=== PATIENT | female | born 1985 | race Caucasian/White ===

== ENCOUNTER 2023-03-28 08:40 | Emergency (ER) | payer OTHER, SELFPAY ==
[2023-03-28 08:45] VITALS: BP 171/54; PULSE 57; RESP 19; TEMP 36.6; O2SAT 98; BMI 19.1
[2023-03-28 09:34] VITALS: BP 111/55; PULSE 64; O2SAT 98
--- NOTE | 2023-03-28 09:43 | PC.NURSE ---
pt is alert and oriented, skin pwd, respirations even and unlabored, pt reports rectal pain/bleeding for months on and off but worse in the last 4 weeks, especial when having a bowel movement, pt is not on blood thinners or asa, pt states being seen at [facility] 2 days ago and was told she has a very large hemorrhoid
--- NOTE | 2023-03-28 10:03 | ED.GENADULT ---
HPI - General Adult General Chief complaint: General Medical Stated complaint: rectal bleeding Time Seen by Provider: 03/28/23 10:03 Source: patient Mode of arrival: ambulatory Limitations: no limitations History of Present Illness HPI narrative: Patient is a 37 year old assigned female at with a history of hemorrhoids presenting to the emergency department today with persistent bleeding hemorrhoids. Patient states that she was recently seen at [facility] for this issue where they did a CT scan that showed an 11mm, bleeding, hemorrhoid. Patient states that she was not given any referrals at [facility]. Patient denies any dizziness, lightheadedness, abdominal pain, nausea, vomiting, fever, chills, blurry vision, double vision, loss of vision, chest pain, difficulty breathing, shortness of breath, back pain, night sweats, pain with urination, increased urinary frequency, increased urinary urgency, syncope or a near syncopal episode, recent trauma or falls, bowel incontinence, bladder incontinence, bowel retention, bladder retention, or any other complaints at this time. Onset (ago): day(s) Relieving factors: none Exacerbating factors: none Associated symptoms: denies other symptoms Treatments prior to arrival: other (tried multiple OTC hemorrhoid treatments) Related Data Allergies Allergy/AdvReac Type Severity Reaction Status Date / Time No Known Allergies Allergy Verified 03/28/23 08:44 Review of Systems Constitutional: Constitutional: Reports no additional constitutional complaints, Denies chills, Denies fever(s) and Denies night sweats Eyes: Eyes: Reports no additional eye complaints, Denies blurry vision, Denies change in vision, Denies diplopia, Denies eye discharge, Denies loss of vision and Denies eye pain ENT: Denies dizziness Cardiovascular: Cardiovascular: Reports no additional cardiovascular complaints, Denies chest pain, Denies lightheadedness, Denies Loss of Consciousness and Denies dyspnea Respiratory: Respiratory: Reports no additional respiratory complaints and Denies dyspnea Gastrointestinal: Gastrointestinal: Reports no additional gastrointestinal complaints, Denies abdominal pain, Denies melena, Reports hematochezia, Denies change in bowel habits and Denies change in stool character Genitourinary: Genitourinary: Denies hematuria, Denies urinary frequency, Denies dysuria, Denies urinary incontinence, Denies urinary hesitancy and Denies urinary urgency Musculoskeletal: Musculoskeletal: Reports no additional musculoskeletal complaints, Denies numbness and Denies tingling Neurologic: Denies dizziness, Denies loss of vision, Denies numbness and Denies tingling Psychiatric: Psychiatric: Reports no additional psychiatric complaints Endocrine: Endocrine: Reports no additional endocrine complaints Hematologic/Lymphatic: Hematologic/Lymphatic: Reports no additional hematologic/lymphatic complaints Allergic/Immunologic: Allergic/Immunologic: Reports no additional allergic/immunologic complaints PMFSH Past Medical History Attestation statement: The following information was validated with the patient. Source: old records reviewed and nursing notes reviewed Social History Social History Smoked in Last 30 Days: No Use of substances other than those prescribed or required for medical reasons: No Advance Directives: No Physical Exam ED Vital Signs: Vital Signs - 24 hr 03/28/23 08:45 03/28/23 09:34 Temperature 98 F Pulse Rate 57 64 Respiratory Rate 19 Blood Pressure 171/54 H 111/55 L Pulse Oximetry 98 98 Oxygen Delivery Method Room Air Room Air BMI result Body Mass Index 19.1 Const General: cooperative, no acute distress, alert and awake Nutritional Appearance: well nourished Orientation/consciousness: patient oriented x3 Limitations: no limitations HENMT Head: Yes normal to inspection and Yes atraumatic Ears: hearing grossly normal bilaterally and external ears normal General nose exam: Normal external nose present, no nasal discharge noted and no epistaxis Face and sinus: Yes normal facial exam, No abrasion and No laceration Mouth: Normal oral and palatal mucosa present, no drooling and no muffled voice Eyes General: appearance normal, both eyes and all related structures Periorbital: periorbital findings normal Eyelids: Yes eyelids normal Conjunctivae: conjunctivae normal Pupils: Equal, round and reactive pupils present EOM: EOMs intact bilaterally Neck Neck: Yes normal visual inspection, Yes full ROM and Yes no lymphadenopathy Chest Chest palpation & inspection: normal inspection of the chest Resp Effort & Inspection: normal respiratory effort and able to speak in complete sentences GI Inspection: Yes normal to inspection Rectal Exam - Female: deferred Neuro General: patient oriented x3 and moves all extremities Cranial nerves: Yes Equal, round and reactive pupils present Cognition (Neuro): normal cognition Motor exam (neuro): 5/5 motor strength present throughout Sensory Exam: Normal double simultaneous stimulation for sensation Coordination: [id number] test normal Extrem General: Yes normal to inspection, Yes full ROM and Yes capillary refill normal Psych Appearance: grossly normal Mental Status: mental status grossly normal Affect: normal affect Attitude: cooperative Thought process: Normal thought process present Thought content: Normal thought content present Insight: Good insight present (Psych) Medical Decision Making Medical Decision Making MDM Narrative: Patient is a 37 year old assigned female at with a history of hemorrhoids presenting to the emergency department today with a bleeding hemorrhoid. Patient's physical exam was unremarkable. The patient deferred a rectal examination. I explained my physical exam findings to the patient. I answered all questions asked by the patient. I explained to the patient that she needs to follow up with a general surgeon for hemorrhoid removal. Patient expressed concern over colon cancer. I explained to the patient she should follow up with a GI specialist for further evaluation. I stressed the importance of the patient taking her medication as prescribed. I stressed the importance of the patient following up with her primary care provider, a GI specialist, and a general surgeon. I stressed the importance of the patient returning to the emergency department immediately if her symptoms were to worsen or if she were to develop any dizziness, shortness of breath, difficulty breathing, chest pain, blurry vision, loss of vision, nausea, vomiting, abdominal pain, fever, chills, back pain, or any other complaints. Patient verbalized agreement and understanding with this treatment plan and discharge. Differential Diagnosis Differential Diagnoses: The differential diagnosis associated with the presentation includes Hemorrhoids Discharge Plan Discharge Clinical Impression: Bleeding hemorrhoids Patient Disposition: Home, Self-Care Instructions: Hemorrhoids (DC) Additional Instructions: I provided you information on a PCP, GI specliast, general surgeon, and psychological resources. Follow up with a primary care provider, a GI specialist (for your concerns of colon cancer), and a general surgeon (for hemorrhoid removal). Return to the emergency department immediately if your symptoms worsen or if you develop any dizziness, shortness of breath, difficulty breathing, chest pain, blurry vision, loss of vision, nausea, vomiting, abdominal pain, fever, chills, back pain, or any other complaints. [facility] at [facility]: [address] [place] [address] Walk in hours from 10am - 12pm Open from 10am - 12pm [facility] Crisis Services: [address] [place] [address] [phone] Walk in hours from 10am - 12pm Open 12/01 [facility]: [address] [place] [phone] [address] [place] [id number] Hours: M-F 8am to 8pm Thursday and Thursday 9am to 5pm Referrals: [facility] Gastroenterology Services [Provider Group] (Call to establish and follow up with a GI specialist.) [facility] General Surgeons [Provider Group] (Call to establish and follow up with a general surgeon.) [facility] Family Medicine [Provider Group] (Call to establish and follow up with a primary care provider. ) [facility] Primary Care, [place] [Provider Group] (Call to establish and follow up with a primary care provider. ) [facility] Primary Care,[place] [Provider Group] (Call to establish and follow up with a primary care provider. ) [facility] [Physician] - (Call to establish and follow up with a primary care provider.) Stand Alone Forms: Work/School Release Interventions: ED Discharge Assessment Last Done: 03/28/23 10:54 Discharge Date/Time: 03/28/23 10:54 Print Language: Yi
== END 2023-03-28 10:54 | disposition home or self-care (01) ==
PROVIDERS: Emergency Provider Emergency Medicine Emergency Medical Services
DX: K64.9 Unspecified hemorrhoids (principal); Z79.899 Other long term (current) drug therapy
CPT/HCPCS: 99282; 99284

== ENCOUNTER 2023-04-02 11:16 | Outpatient (AMB) | payer OTHER, SELFPAY ==
[2023-04-02 11:21] VITALS: BP 110/47; PULSE 77; BMI 19.5
--- NOTE | 2023-04-02 11:21 | MHC.OFFVIS ---
Intake Vital Signs 04/02/23 11:21 Height 5 ft 11 in Weight 140 lb BMI 19.5 BP 110/47 L Blood Pressure Location Rt brachial Position Sitting Pulse 77 Intake Visit Reasons: Bleeding Hemorrhoids Intake Note: This patient presents for [facility] emergency department follow-up for hemorrhoids. Patient c/o; reports rectal bleeding has subsided, reports no pain at this time, denies constipation. 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 She says that she has had hemorrhoids for more than 5 years. She always had some periodic bleeding and pain and swelling. However, for the past few months she had noticed some more frequent episodes of bleeding which is bright lead and seen on the toilet bowl. She says that her hemorrhoids often swell up and cause significant pain. She says she had been to the ER twice in the last month She denies being constipated and actually says she often has loose stools She says she has been diagnosed of fibromyalgia. However, she does not have any primary care physician or any healthcare provider at this time. [facility] Medical History (Updated 04/02/23 @ 11:58 by Roberto Reddy MD) Fibromyalgia Surgical History (Updated 04/02/23 @ 11:31 by NOEMÍ Guillen) No pertinent past surgical history Family History (Updated 04/02/23 @ 11:32 by NOEMÍ Guillen) Maternal Grandfather Liver cancer Paternal Grandfather Lung cancer Social History (Updated 04/02/23 @ 11:33 by NOEMÍ Guillen) Alcohol intake: never Patient Tobacco Use Status: Never used Tobacco Review of Systems Const Denies chills and Denies fever(s) Card Denies chest pain, Denies dyspnea and Denies dyspnea on exertion Resp Denies cough, Denies dyspnea and Denies dyspnea on exertion GI Reports hematochezia and Denies change in bowel habits Denies hematuria Musc Denies back pain and Denies limited range of motion Neuro Denies focal weakness and Denies convulsions Psych Denies depression and Denies mood swings Physical Exam Vital Signs: Last Vital Signs Pulse 77 04/02/23 11:21 BP 110/47 L 04/02/23 11:21 BMI result Body Mass Index 19.5 Const General: comfortable and no acute distress Orientation/consciousness: patient oriented x3 Neck Neck: Yes no lymphadenopathy Resp Auscultation: clear to auscultation bilaterally Cardio Rhythm: regular rhythm GI Other: Rectal exam shows large prolapsing hemorrhoids which appears to be a mix of internal external Palpation (GI): Soft to palpation, nontender and no guarding Neuro General: patient oriented x3 Office Procedures Anoscopy She was placed in savannah-knife position. The anoscope was gently inserted. A full examination of the anal canal was done. There was note of a large hemorrhoidal column on the anterior aspect on the posterior anal canal which appears to be a mix of internal and external hemorrhoids. Anteriorly to the right was also note of a mixed hemorrhoidal column which appears to be large as well. There were no other lesions. There was no fissure or induration on digital exam. There was no bleeding. [id number] Assessment & Plan Assessment & Plan (1) Bleeding hemorrhoids: Code(s): K64.9 - Unspecified hemorrhoids Plan: She has large hemorrhoids a mix of internal and external with frequent bleeding, pain and swelling. Explained the technique of hemorrhoidectomy. I reviewed the risks including but not limited to bleeding, infections, postop pain, sphincter injury, as well as the benefits and alternatives. I also reviewed with her what to expect postoperatively. She is undecided at this time. However, she says she will call the office once she decides to proceed with hemorrhoidectomy. Coding Level of Care Code New Pt Level 3 (83994) Diagnoses Bleeding hemorrhoids K64.9 CPT Codes Details - CPT: 80336-Awwkcnnm ([id number])
== END 2023-04-02 11:56 | disposition home or self-care (01) ==
LOC: HO.HGS 11:17
PROVIDERS: Visit Provider Surgery
DX: K64.8 Other hemorrhoids (principal)
CPT/HCPCS: 46600; 99204

== ENCOUNTER → 2023-04-02 11:16 | Outpatient (BNVA) | payer OTHER, SELFPAY | PROVIDERS: Visit Provider Surgery | DX: K64.8 Other hemorrhoids (principal); K64.4 Residual hemorrhoidal skin tags | CPT/HCPCS: 46600; 99202 ==